=== PATIENT | female | born 1990 | race Caucasian/White ===

== ENCOUNTER 2025-05-14 15:08 | Outpatient (CLI) | payer OTHER, SELFPAY ==
--- NOTE | 2025-05-14 15:00 | CRLHL7_ITS ---
For Patients: As a result of the 21st Century Cures Act, medical imaging exams and procedure reports are released immediately into your electronic medical record. You may view this report before your referring provider. If you have questions, please contact your health care provider. OB ULTRASOUND SURVEY LMP: 11/06/2024. JANET by LMP: 08/13/2025. JANET by US: 08/14/2025. GA: 27 w, 0 d. INDICATION: anatomical survey. TECHNIQUE: Real time weber scale imaging of the fetus was performed. Evaluate anatomy. Transabdominal imaging performed. position: Breech. Cervix: Visualized. Technique: Transabdominal. Length of closed cervix: 3.0 cm. Placenta/cord: Anterior. Technique: Transabdominal. Placenta tip to internal OS: 7.5 cm. Umbilical Cord: 3-vessel cord. Placenta insertion: Central. Amniotic Fluid: 6.7 cm SDP (greater than/equal to: 2- less than 8 cm). SURVEY: Observed Structures. Calvarium/Spine: Cerebellum: 2.9 cm, 27 w 1 d. Cisterna Magna: 12.2 mm. Nuchal Fold: Too old to measure. Lateral Ventricle: 7.9 mm. CSP: Yes. Midline Falx: Yes. Choroid Plexus: Yes. Spine: Yes. Abdomen: Stomach: Yes. Abd Cord Insertion: Yes. Urinary Bladder: Yes. Kidneys: Yes. Diaphragm: Yes. Face: Nose/lips: Yes. Orbital view: Yes. Profile: Yes. Limbs: Upper Extremities: Yes. Lower Extremities: Yes. Hands: Yes. Feet: See comment. Vascular: 4-Chamber Heart: Yes. LVOT: Yes. RVOT: Yes. 3VV: See comment. 3VTV: Yes. BPD: 6.7 cm. 27 w, 1 d, 42.2 percent. HC: 25.3 cm. 27 w, 4 d, 38.8 percent. AC: 23.4 cm. 27 w, 5 d, 65.0 percent. FL: 4.7 cm. 25 w, 6 d, 8.6 percent. FL/AC ratio: 20.2 percent. HC/AC ratio: 1.1. heart rate: 139 bpm. age by this US: 27 w, 1 d. JANET by this US: 08/12/2025. EFW: 1014 g. Weight: 2 lbs, 4 oz. Percentile by JANET: 38.0 percent. COMMENT: feet and 3VV are suboptimal due to position. IMPRESSION: Single live intrauterine gestation at 27weeks 1day with JANET of 08/12/25. The left kidney is suboptimally visualized. There are otherwise no gross anomalies visualized. Evi Raman M.D. Diagnostic/Breast Radiologist [email or web address] TKP/meir worley/Dictated by: Evi Raman MD @ 05/17/2025 9:37:00 AM (Electronically Signed)
== END 2025-05-14 15:09 | disposition home or self-care (01) ==
LOC: US 15:08
PROVIDERS: Visit Provider Registered Nurse
DX: Z34.92 Encounter for supervision of normal pregnancy, unspecified, second trimester (principal); Z3A.27 27 weeks gestation of pregnancy
CPT/HCPCS: 76805

== ENCOUNTER 2025-05-14 16:30 | Outpatient (CLI) | payer OTHER, SELFPAY ==
[2025-05-14 21:39] LABS: Chlamydia DNA Amplified* NOT DETECTED (No Detected); GC DNA Amplified* NOT DETECTED (No Detected)
== END 2025-05-14 16:31 | disposition home or self-care (01) ==
PROVIDERS: Visit Provider Registered Nurse
DX: Z34.82 Encounter for supervision of other normal pregnancy, second trimester (principal)
CPT/HCPCS: 80306; 83020; 83021; 85660; 86592; 86787; 87491; 87591

== ENCOUNTER 2025-06-10 12:24 | Outpatient (CLI) | payer OTHER, SELFPAY ==
--- NOTE | 2025-06-10 12:15 | CRLHL7_ITS ---
For Patients: As a result of the Century Cures Act, medical imaging exams and procedure reports are released immediately into your electronic medical record. You may view this report before your referring provider. If you have questions, please contact your health care provider. OB ULTRASOUND FOLLOW-UP/LIMITED, 06/10/2025 CLINICAL HISTORY: Follow-up suboptimal views. COMPARISON: 05/14/2025. TECHNIQUE: Multiple transabdominal weber-scale color and M-mode Doppler images were obtained. FINDINGS: LMP: 11/06/2024. JANET by LMP: 08/13/2025. GA: 30 weeks 6 days. Gestation: Single. Cervix: Not visualized. Positioning: Breech. Amniotic Fluid: 7.2 cm SDP. Placenta: Technique: TA. Placenta Position: Anterior. Dopplers: Heart Rate: 159 bpm. IMPRESSION: 1. Kidneys and feet were visualized and appear normal. 2. Three vessel view was again suboptimal. Consider additional follow-up imaging. Naveen Anna M.D. Body/Diagnostic Radiologist [email or web address] Transcribed: 11:12 am DW/Dictated by: Naveen Anna MD @ 06/12/2025 10:47:00 AM (Electronically Signed)
== END 2025-06-10 12:25 | disposition home or self-care (01) ==
LOC: US 12:25
PROVIDERS: Visit Provider Registered Nurse
DX: Z36.2 Encounter for other antenatal screening follow-up (principal)
CPT/HCPCS: 76816

== ENCOUNTER 2025-06-25 10:52 | Outpatient (CLI) | payer OTHER, SELFPAY ==
--- NOTE | 2025-06-25 10:45 | CRLHL7_ITS ---
For Patients: As a result of the Century Cures Act, medical imaging exams and procedure reports are released immediately into your electronic medical record. You may view this report before your referring provider. If you have questions, please contact your health care provider. OB ULTRASOUND LMP: 11/06/2024. JANET by LMP: 11/06/2024. JANET by LMP: 08/13/2025. GA: 33 w, 0 d. Single. Comparison: 06/10/2025, 05/14/2025. INDICATION: Follow-up missing anatomy view, 3VV. TECHNIQUE: Real time weber scale imaging of the fetus was performed. Transabdominal. CERVIX: Not visualized. POSITIONING: Vertex. AMNIOTIC FLUID: 5.7 cm. SDP (N: greater than 2 x 1 cm) PLACENTA: Technique: Transabdominal. PLACENTA POSITION: Anterior. DOPPLER: heart rate: 130 bpm. IMPRESSION: Normal kidneys and bladder, stomach, ductal arch, three-vessel trachea view, four-chamber view, LVOT, RVOT and three-vessel view. Rodney Ro M.D. Diagnostic Radiologist [email or web address] SERA/lana JR/Dictated by: Rodney Ro MD @ 06/25/2025 12:07:00 PM (Electronically Signed)
== END 2025-06-25 10:53 | disposition home or self-care (01) ==
LOC: US 10:53
PROVIDERS: Visit Provider Obstetrics & Gynecology
DX: Z36.2 Encounter for other antenatal screening follow-up (principal)
CPT/HCPCS: 76816

== ENCOUNTER 2025-07-17 16:16 | Outpatient (CLI) | payer OTHER, SELFPAY ==
[2025-07-17 16:25] VITALS: PULSE 93; O2SAT 96
[2025-07-17 16:30] VITALS: PULSE 95; O2SAT 97
[2025-07-17 16:35] VITALS: PULSE 93; O2SAT 96
[2025-07-17 16:40] VITALS: PULSE 96; O2SAT 96
[2025-07-17 16:45] VITALS: BP 122/72; PULSE 88; RESP 16; TEMP 36.4
--- NOTE | 2025-07-17 18:03 | PC.OBNST ---
NST Note NST Note Start: 07/17/25 16:29 Freq: ONCE Status: Discharge Protocol: Document 07/17/25 17:46 BYRONY (Rec: 07/17/25 18:03 BYRON [email or web address]) NST Note 2 Para (# of births) 1 EDC 08/13/25 Gestational Age In 36 Weeks & 1 Days Weeks & Days Patient Presented Contractions/cramping with Complaint(s) of Reactive Yes Appropriate for Yes Gestational Age KELSI Linares RN Date 07/17/25 Reactive Yes Appropriate for Yes Gestational Age KELSI Fraser RN Date 07/17/25 OB NST charge Yes Complete NST Note Yes via Write Note The provider's electronic signature indicates the NST is reactive/appropriate for gestational age. *Note to provider: If an addendum is required, open the patient's chart and click on the note under the Nurse/Allied Health tab.
== END 2025-07-17 17:46 | disposition home or self-care (01) ==
LOC: OB OUT 16:17 → OB 16:19
PROVIDERS: Visit Provider Obstetrics & Gynecology
DX: O47.03 False labor before 37 completed weeks of gestation, third trimester (principal); Z3A.36 36 weeks gestation of pregnancy
CPT/HCPCS: 59025; G0463

== ENCOUNTER 2025-07-19 14:28 | Outpatient (CLI) | payer OTHER, SELFPAY ==
[2025-07-20 13:33] LABS: Strep B DNA Probe Negative (Negative)
[2025-07-20 14:25] LABS: Strep B Susceptibility Needed? No
== END 2025-07-19 14:29 | disposition home or self-care (01) ==
LOC: NFLDREF 14:28
PROVIDERS: Visit Provider Obstetrics & Gynecology
DX: Z34.93 Encounter for supervision of normal pregnancy, unspecified, third trimester (principal)
CPT/HCPCS: 87081; 87653

== ENCOUNTER 2025-08-17 01:44 | Inpatient (IN) | payer OTHER, SELFPAY ==
[2025-08-17] VITALS (107 sets, daily range): BP systolic 108–143; BP diastolic 55–99; PULSE 73–108; RESP 16–18; TEMP 36.4–36.9; O2SAT 93–100; BMI 35.6
[2025-08-17] MEDS: LACTATED RINGERS 1000 ML 1,000 ML 900 ML IV (01:49)
[2025-08-17 02:38] LABS: Hematocrit* 35.8 % (33.0-51.0); Hemoglobin* 12.1 gm/dL (12.0-16.0); Immature Granulocytes Pct Auto 2.0 %; Mean Corpuscular HGB Conc 34 gm/dL (32-36); Mean Corpuscular Hemoglobin 29 pg (26-34); Mean Corpuscular Volume 85 fL (80-100); RDW Coefficient of Variation % 15.0 % (11.5-15.5); Red Blood Count* 4.23 m/uL (4.00-5.20); White Blood Count* 11.13 K/uL (4.50-11.00)
[2025-08-17 02:40] LABS: Immature Granulocytes Abs Auto 0.20 K/uL (0.00-0.30); Lymphocytes Absolute Auto 2.80 K/uL (0.90-2.90); Slide Review Reflex No
[2025-08-17] MEDS: BUPIVACAINE 0.25% PF 10 ML 10 ML ML EPIDURAL (02:49)
[2025-08-17] MEDS: ROPIVACAINE 0.2% 100 ml 100 ML 12 MG EPIDURAL ×2 (02:49→10:24)
[2025-08-17] MEDS: LACTATED RINGERS 1000 ML 1,000 ML 125 ML IV ×2 (02:57→09:46)
--- NOTE | 2025-08-17 02:59 | PM.ANBPRC ---
[facility] Medical History Migraine without aura ?G43.009 - Migraine without aura, not intractable, without status migrainosus (ICD-10) GERD (gastroesophageal reflux disease) ?K21.9 - Gastro-esophageal reflux disease without esophagitis (ICD-10) Depression with anxiety ?F41.8 - Other specified anxiety disorders (ICD-10) Surgical History [place] teeth extracted ?K08.409 - Partial loss of teeth, unspecified cause, unspecified class (ICD-10) Family History Other Alcohol dependence Breast cancer High blood pressure Social History What is your current living situation?: I presently have a place to live Problems where you live: no known problems In the past 12 months, utilities in danger of being shut off: no In the past 12 mos, have been you worried that your food would run out before you had money to buy more?: never true In the past 12 mos, the food you bought just didn't last and you didn't have money to buy more?: never true Smoking Status: Never smoker How often does anyone, including family, friends and others, physically hurt you: never How often does anyone, including family, friends and others, insult or talk down to you: never How often does anyone, including family, friends and others, threaten you with harm: never How often does anyone, including family, friends and others, scream or curse at you: never Meds Home Medications and Allergies Home Medications ?Medication ?Instructions ?Recorded ?Confirmed ?Type escitalopram oxalate 20 mg tablet 20 mg PO DAILY 09/02/23 08/16/25 History docosahexaenoic acid 200 mg 200 mg PO 05/14/25 08/16/25 History capsule ( DHA) doxylamine succinate 25 mg tablet 25 mg PO QHS PRN 05/14/25 08/16/25 History (Unisom (doxylamine)) ferrous sulfate 27 mg iron tablet 5 mg PO QDAY 05/14/25 08/16/25 History pyridoxine (vitamin B6) 25 mg 25 mg PO QDAY 05/14/25 08/16/25 History tablet famotidine 10 mg tablet 10 mg PO QDAY 05/28/25 08/16/25 History omeprazole 10 mg capsule,delayed 10 mg PO QDAY 06/18/25 08/16/25 History release Allergies Allergy/AdvReac Type Severity Reaction Status Date / Time No Known Drug Allergies Allergy Verified 08/16/25 14:54 Results Labs Labs: Laboratory Results - last 24 hr 08/17/25 01:46 WBC 11.13 H RBC 4.23 Hgb 12.1 Hct 35.8 MCV 85 MCH 29 MCHC 34 RDW Coeff of Salima 15.0 Plt Count 264 Neut % (Auto) 64.8 Lymph % (Auto) 25.5 [place] % (Auto) 6.6 Eos % (Auto) 0.9 Baso % (Auto) 0.2 Neut # (Auto) 7.20 H Lymph # (Auto) 2.80 [place] # (Auto) 0.70 Eos # (Auto) 0.10 Baso # (Auto) 0.00 Abs Immat Gran (auto) 0.20 Imm/Tot Granulo (auto) 2.0 Vital Signs Vital Signs: Last Vital Signs Temp 97.6 F 08/17/25 01:53 Pulse 88 08/17/25 02:57 BP 137/80 08/17/25 02:59 Pulse Ox 100 08/17/25 02:54 Anesthesia Procedures Epidural Insertion Patient Location: OB Start Time: 02:05 Stop Time: 03:00 Start Date: 08/17/25 Stop Date: 08/17/25 Reason for Block: procedure for pain Patient Position: sitting Performed By: Ariel Spaulding Preanesthetic Checklist: IV checked, risks and benefits discussed, monitors and equipment checked, pre-op evaluation, timeout performed and anesthesia consent Prep: chlorhexidine gluconate Monitoring: blood pressure monitoring, continuous pulse oximetry and heart rate Approach: midline Vertebral Space: lumbar (1-5) Epidural Technique: TIFFANIE saline Needle Type: Tuohy needle Injection Technique: continuous catheter Needle gauge: 17 Needle Length (cm): 10 cm Needle Insertion Depth (cm): 8 Catheter Gauge: 19 Catheter Type: multi-orifice Catheter at skin depth (cm): 14 Test Dose Result: negative and lidocaine 1.5% with epinephrine 1 to 200,000
--- NOTE | 2025-08-17 06:41 | PM.GYNCN1 ---
HEALTH OCCUPATIONS TEACHER - CN: HPI Data of Consult Time Seen by Provider: 06:41 Date Seen: 08/17/25 Requesting Physician: Elena Schmidt MD Primary Care Provider: Not a Local Provider Consult Narrative Narrative: Leyda Barnett is a 34 year old female cc:: CC: Elena Schmidt MD [facility] Medical History Migraine without aura ?G43.009 - Migraine without aura, not intractable, without status migrainosus (ICD-10) GERD (gastroesophageal reflux disease) ?K21.9 - Gastro-esophageal reflux disease without esophagitis (ICD-10) Depression with anxiety ?F41.8 - Other specified anxiety disorders (ICD-10) Surgical History [place] teeth extracted ?K08.409 - Partial loss of teeth, unspecified cause, unspecified class (ICD-10) Family History Other Alcohol dependence Breast cancer High blood pressure Social History What is your current living situation?: I presently have a place to live Problems where you live: no known problems In the past 12 months, utilities in danger of being shut off: no In the past 12 mos, have been you worried that your food would run out before you had money to buy more?: never true In the past 12 mos, the food you bought just didn't last and you didn't have money to buy more?: never true Smoking Status: Never smoker How often does anyone, including family, friends and others, physically hurt you: never How often does anyone, including family, friends and others, insult or talk down to you: never How often does anyone, including family, friends and others, threaten you with harm: never How often does anyone, including family, friends and others, scream or curse at you: never Meds Home Medications and Allergies Home Medications ?Medication ?Instructions ?Recorded ?Confirmed ?Type escitalopram oxalate 20 mg tablet 20 mg PO DAILY 09/02/23 08/16/25 History docosahexaenoic acid 200 mg 200 mg PO 05/14/25 08/16/25 History capsule ( DHA) doxylamine succinate 25 mg tablet 25 mg PO QHS PRN 05/14/25 08/16/25 History (Unisom (doxylamine)) ferrous sulfate 27 mg iron tablet 5 mg PO QDAY 05/14/25 08/16/25 History pyridoxine (vitamin B6) 25 mg 25 mg PO QDAY 05/14/25 08/16/25 History tablet famotidine 10 mg tablet 10 mg PO QDAY 05/28/25 08/16/25 History omeprazole 10 mg capsule,delayed 10 mg PO QDAY 06/18/25 08/16/25 History release Allergies Allergy/AdvReac Type Severity Reaction Status Date / Time No Known Drug Allergies Allergy Verified 08/16/25 14:54 HEALTH OCCUPATIONS TEACHER - Exam Physical Exam: Vital signs: Temp Pulse BP Pulse Ox 98.4 F 88 119/70 93 08/17/25 06:03 08/17/25 06:33 08/17/25 06:33 08/17/25 05:54 HEALTH OCCUPATIONS TEACHER - Results Labs Labs: Short CBC 08/17/25 Range/Units 01:46 WBC 11.13 H (4.50-11.00) K/uL Hgb 12.1 (12.0-16.0) gm/dL Hct 35.8 (33.0-51.0) % Plt Count 264 (140-440) K/uL
[2025-08-17] MEDS: ACETAMINOPHEN 500 MG TABLET 1000 MG PO ×3 (06:57→21:26)
[2025-08-17] MEDS: ONDANSETRON 2 MG/ML inj 4 MG IV (07:50)
--- NOTE | 2025-08-17 10:00 | W.PM.LDBA ---
Subjective History of Present Illness Time Seen by Provider: 10:00 Date Seen: 08/17/25 Narrative: Patient is being admitted to Labor and Delivery for spontaneous onset of labor. She is a 34 year old at 40 4/7 weeks gestation. Her full history and physical was dictated by Leann Ruiz CNM on 07/26/2025. Please see this for details. When she presented to the center, she was experiencing contractions at 2.5 to 3 minute intervals and rated her pain at 10/10. She received an epidural for pain control at 2:45 a.m., and has been comfortable since. Specific Issues/Plans G 2 P 1001 H&P by Virginie Ruiz CNM on 07/26/25 # Anemia - Hgb 10.8 at 27 weeks. Continue iron supplement. - Hgb 11.3 at 34 weeks # Father of baby has G6PD deficiency. (inherited x-linked disorder that causes RBCs to break down prematurely) Declined genetic counseling referral - states they completed with her first and know what to expect and what to do after baby is born. 05/28/25 # Late to care. First OB visit at 27 weeks. Urine tox screen: Negative. [x] FAS - see below # Anxiety and depression. Increased stress with recent move, job hunting, and living in a small space with other family members. Lexapro 20 mg daily. Was seeing a psychiatrist for medication management in a therapist. Needs to establish with both of these providers in [place]. Will place a referral for each. # Needs pap PP - [place], [place], [facility]: [facility] faxed a message indicating there is no pap report to send. Ultrasound: 01/05/2025: Single live IUP with EGA by menstrual period of 8 weeks 4 days an EGA by ultrasound of 8 weeks 3 days. heart rate 178 beats per minute. Small hypoechoic collection adjacent to gestational sac suggesting small subchorionic hemorrhage. - FAS: Normal visualized anatomy - kidneys/feet/3VV now well seen. EFW 1014g at 38% - BPD 42%, HC 39%, AC 65%, FL 8.6%. Anterior placenta, no previa. 3 vessel cord, central insertion. Cx 3.0cm. - 06/10: Kidneys and feet seen and normal. 3VV still not seen, ordered repeat. FHR 159, SDO 7.2cm, breech. - 06/26: EVV view seen, normal. MVP 5.7cm. FHR 130bpm. Labs: 02/07/2025: Hemoglobin 11.6, platelets 334, blood type O positive, antibody screen negative, TSH 1.432, rubella 66/positive, urine culture mixed Gram-positive organisms growth represents contamination, RPR nonreactive hepatitis C antibody negative hepatitis-B surface antigen negative, HIV negative, Maternity 21 on 02/18/2025: Negative Chlamydia gonorrhea: negative, Varicella:immune. Pap smear:[], 1st OB visit:[] Covid: 06/25/25 TDAP: 06/10/25 RSV: 06/25/25 Mental Health: 06/25/25 Hgb: 11.3 GBS: 07/19/2025 H&P:07/26/25 OB - Problem Based A/P Additional Plan (1) Spontaneous onset of labor: Status: Acute Delivery/Labor/Induction Plan Plan: expectant management Induction method: AROM OB Result Labs Blood Type: O (+) positive Rubella: immune RPR/VDLR: nonreactive GBS Status: negative HBsAG: negative OB Exam Physical Exam Vital signs: Temp Pulse BP Pulse Ox 98.2 F 88 115/64 93 08/17/25 08:35 08/17/25 09:47 08/17/25 09:47 08/17/25 05:54 Detailed Labor and Delivery Exam Patient Gravid: yes Dilation (cm): 9 Effacement (%): 100 Cervix position: mid Consistency: soft Contraction Frequency: q3 minutes Contraction duration (sec): 60 Tachysystole: No Contraction intensity: Strong/Firm Fetus (Single) Station: 0 Amniotic Membrane Status: AROM (@ ~0959) Amniotic Membrane Fluid Description: Clear Heart Rate Baseline: 120 Monitor Accelerations: Present Monitor Decelerations: None Skilled Nursing Variability: Moderate (6-25)
--- NOTE | 2025-08-17 11:18 | W.PM.OBVAGDE ---
OB Procedure Vag Delivery Mother Details Mother Details: The patient is a 34 year-old, 2, Para 1001, admitted on 08/17/25 at 40 4/7 weeks gestation in active labor. : 2 Para: 1 Weeks Gestation: 40.4 Admission Date: 08/17/25 Additional Details Amniotic Membrane Status: AROM (@ ~0959) Amniotic Membrane Rupture Date: 08/17/25 Amniotic Membrane Rupture Time: 09:55 Amniotic Membrane Fluid Description: Meconium Stained (initially looked clear, but was obviously meconium-stained at thte time of delivery) Analgesia/Anesthesia Type: Epidural Waterbirth: No [place]: No Delivery augmentation: rupture of membranes Labor Onset: 01:40 Complete: 10:30 Pushin:32 Heart: heart tones during second stage were 120s baseline with good variability and variable decelerations with pushing to 90s to 100. Delivery Details Delivery Date: 08/17/25 Delivery Time: 10:58 Route of delivery: (25 second shoulder dystocia, relieved with Jake positioning and wood screw maneuver) Infant Gender: Female Viability: Alive; Heart Rate Present Position at Delivery: OA Delivery Details: Delivered via vaginal delivery. Cord was clamped and cut and the infant taken to the warmer for evaluation and resuscitation. See [facility] [employer] OFFICIAL note for details.? Infant weight 7 lb 14 oz. 1 Minute Interval Total Score: 3 5 Minute Interval Total Score: 9 Additional Details Shoulder Dystocia: Yes (25 seconds, relieved with Padilla screw maneuver) Placenta Delivery Time: 11:04 Placental Delivery Description: Spontaneous Delivery repair: Chromic (1 interrupted stitch of 3-0 chromic midline upper labial) Procedure Done: Global Blood Loss: 615 (200 mL immediately with the delivery, and then an additional 415 mL blood and clots removed from the uterus approximately 1 hour later. Initially IV Pitocin, and then misoprostol 800 mcg LA administered.) Laceration: Labial Episiotomy Description: None Blood Loss Measurement Type: QBL Bakri Used: No Sponge/Need Count Correct: Yes Cord Vessel Description: 3 Vessels (Cord gases obtained) Event Summary Status: Mother and infant were stable after delivery. Disposition: floor
[2025-08-17] MEDS: LIDOCAINE 1 % PF 30 ML INJECTION (11:20)
[2025-08-17] MEDS: IBUPROFEN 600 MG TABLET PO ×2 (11:30→18:53)
[2025-08-17] MEDS: miSOPROStoL 800 MCG/4 TABLET PR (12:00)
[2025-08-17] MEDS: TRANEXAMIC ACID 100 MG/ML INJ 1000 MG IV (12:52)
--- NOTE | 2025-08-17 13:04 | PM.OBPNVD1 ---
OB - PN:Subj Subjective Time Seen by Provider: 13:04 Date Seen: 08/17/25 Narrative: Called for the second time to assess patient for hemorrhage. The first time was approximately 1 hour after the delivery , at which time 415 mL of blood and clots was manually removed from the uterus (see delivery note). Leyda now had the infant to breast nursing, and felt more cramping and bleeding. OB - PN: Obj Exam Physical Exam: Vital signs: Temp Pulse BP Pulse Ox 98.2 F 80 136/82 96 08/17/25 08:35 08/17/25 13:03 08/17/25 13:03 08/17/25 12:59 Constitutional: Constitutional: no acute distress Comments: Sitting, reclined in bed nursing infant Routine Abdominal Exam: Fundus: Present firm (at U, deflected to patient's right) Routine Exam: Comments: No evidence of perineal, vaginal or cervical bleeding. Bladder sterilely emptied of ~400 mL clear urine with a red [place] catheter. Fundus returned to midline, U/2. Bimanual examination performed, 2 small clots removed, no active flow noted. QBL 150 mL total on the drape/pad. OB - PN: Obj Data Labs Labs: Laboratory Results - last 24 hr 08/17/25 01:46 WBC 11.13 H RBC 4.23 Hgb 12.1 Hct 35.8 MCV 85 MCH 29 MCHC 34 RDW Coeff of Salima 15.0 Plt Count 264 Neut % (Auto) 64.8 Lymph % (Auto) 25.5 [place] % (Auto) 6.6 Eos % (Auto) 0.9 Baso % (Auto) 0.2 Neut # (Auto) 7.20 H Lymph # (Auto) 2.80 [place] # (Auto) 0.70 Eos # (Auto) 0.10 Baso # (Auto) 0.00 Abs Immat Gran (auto) 0.20 Imm/Tot Granulo (auto) 2.0 OB - PN: A/P Delivery Assessment and Plan (1) Status post delivery at term: Status: Acute (2) hemorrhage: Status: Acute Assessment and Plan: Total QBL: 200 mL(delivery) + 415 mL + 150 mL = 765 mL. Uterotonics administered since delivery: IV pitocin, misoprostol 800 mg OR, tranexamnic acid 1000 mg IV. Urinary retention likely contributed to bleeding. Bladder emptied via catheter. Clots removed, flow resolved. Plan day: 0 Plan: routine care
[2025-08-18] MEDS: IBUPROFEN 600 MG TABLET PO ×4 (01:09→21:18)
[2025-08-18] MEDS: ACETAMINOPHEN 500 MG TABLET 1000 MG PO ×3 (03:14→18:28)
[2025-08-18 04:19] VITALS: BP 125/78; PULSE 75; RESP 16; TEMP 36.7; O2SAT 96
[2025-08-18 05:19] LABS: Hemoglobin* 10.5 gm/dL (12.0-16.0)
[2025-08-18 08:00] VITALS: BP 123/76; PULSE 82; RESP 18; TEMP 36.2; O2SAT 97
[2025-08-18] MEDS: DOCUSATE SODIUM 100 MG CAPSULE PO (10:18)
--- NOTE | 2025-08-18 11:44 | PM.ANPOST ---
Post Anesthesia Note Post Anesthesia Note Patient seen: Inpatient Respiratory Status: adequate Cardiovascular Status: adequate Mental Status: baseline Pain: adequate Temp: baseline Anesthetic awareness: N/A Complications: none Follow care: none
--- NOTE | 2025-08-18 13:13 | PM.OBPNVD1 ---
OB - PN:Subj Subjective Date Seen: 08/18/25 Patient comments OB post-: no complaints Narrative: The patient is a 34-year-old 2 now para 2001 who is day one following a normal spontaneous vaginal delivery. She had an immediate hemorrhage due to uterine atony, with a total blood loss of 700-800 mL. Bleeding is normal now. Her vital signs have been stable and she feels well. She continues to work on and is somewhat discouraged. She has a lot of breast pain when her latches. She has been working with the nurses, using a breast shield, and trying different feeding positions. OB - PN: Obj Exam Physical Exam: Vital signs: Temp Pulse Resp BP Pulse Ox O2 Del Method 97.2 F L 82 18 123/76 97 Room Air 08/18/25 08:00 08/18/25 08:00 08/18/25 08:00 08/18/25 08:00 08/18/25 08:00 08/18/25 08:00 Constitutional: Constitutional: no acute distress Routine Neck Exam: Neck: Present normal inspection Routine Respiratory Exam: Respiratory: Present CTA bilaterally; Absent respiratory distress Routine Cardiovascular Exam: Cardiovascular: Present RRR; Absent murmur Routine Abdominal Exam: Abdominal: Present soft; Absent tenderness Fundus: Present firm Routine Extremities Exam: Extremities: Present normal inspection and pedal edema; Absent calf tenderness Routine Neurological Exam: Neurological: Present alert and oriented X3 Routine Psychiatric Exam: Psychiatric: Present normal affect OB - PN: Obj Data Labs Labs: Laboratory Results - last 24 hr 08/18/25 04:56 Hgb 10.5 L OB - PN: A/P Delivery Assessment and Plan (1) Status post delivery at term: Status: Acute (2) hemorrhage: Status: Resolved Plan day: 1 Plan: routine care Comments: Anticipate discharge tomorrow.
[2025-08-18 15:30] VITALS: BP 122/75; PULSE 86; RESP 16; TEMP 36.2; O2SAT 97
[2025-08-18] MEDS: SIMETHICONE 80 MG TAB.CHEW PO (18:28)
[2025-08-18 21:10] VITALS: BP 128/81; PULSE 70; RESP 16; TEMP 36.8; O2SAT 97
[2025-08-19] MEDS: ACETAMINOPHEN 500 MG TABLET 1000 MG PO ×2 (00:42→07:56)
[2025-08-19 00:45] VITALS: BP 121/85; PULSE 73; RESP 16; TEMP 36.4; O2SAT 97
[2025-08-19 05:15] VITALS: BP 130/84; PULSE 77; RESP 16; TEMP 36.6; O2SAT 97
[2025-08-19] MEDS: IBUPROFEN 600 MG TABLET PO ×2 (05:33→12:55)
[2025-08-19] MEDS: SIMETHICONE 80 MG TAB.CHEW PO (05:33)
[2025-08-19 07:56] VITALS: TEMP 36.2
[2025-08-19 08:04] VITALS: BP 124/82; PULSE 78; RESP 16; TEMP 36.2; O2SAT 97
--- NOTE | 2025-08-19 08:49 | PM.OBDSVD1 ---
DS: Providers Provider Date Seen: 08/19/25 Date of admission: 08/17/25 01:44 Primary care physician: Not a Local Provider Admitting Clinician: Elena Schmidt MD Attending Physician on discharge: Leann Ruiz CNM Date of Discharge: 08/19/25 DS: Diagnosis Discharge Diagnosis (1) care and examination immediately after delivery: Status: Acute (2) Lactating mother: Status: Acute (3) Status post delivery at term: Status: Acute (4) hemorrhage: Status: Resolved Exam Narrative: Exam Narrative: VSS, afebrile GENERAL APPEARANCE: ?normal affect, alert, no distress MOOD: ?appropriate HEENT: normocephalic, neck supple, full ROM CHEST: ?Symmetrical chest wall movement. ?Normal respiratory effort. ?Clear to auscultation HEART: ?regular rate and rhythm ABDOMEN: ?soft, non-tender. Uterine fundus is firm, at Umbilicus, Midline and is appropriate for the stage of recovery. ?Bowel sounds present. PERINEUM: ?mild edema of the perineum, there is a labial laceration that is healing well. EXTREMITIES: ?normal and trace edema Const: Vital Signs, click to edit/add: Vital Signs - 24 hr 08/18/25 15:30 08/18/25 21:10 08/19/25 00:45 Temperature 97.2 F L 98.3 F 97.6 F Pulse Rate [Pulse Oximeter] 86 70 73 Respiratory Rate 16 16 16 Blood Pressure [Ri ght Arm] 122/75 128/81 121/85 Pulse Oximetry 97 97 97 Oxygen Delivery Me thod Room Air Room Air Room Air 08/19/25 05:15 08/19/25 07:56 08/19/25 08:04 Temperature 97.8 F 97.2 F L 97.2 F L Pulse Rate [Pulse Oximeter] 77 78 Respiratory Rate 16 16 Blood Pressure [Ri ght Arm] 130/84 124/82 Pulse Oximetry 97 97 Oxygen Delivery Me thod Room Air Room Air Documenting provider has reviewed patient's vital signs: yes OB - DS: Summary Hospital Course Hospital Course: Leyda is a 34 y.o. who was admitted to [facility] for labor. ?She had an uncomplicated NVD.?The patient feels well. ?The pain is well controlled with current medications. ?She has no new complaints. ?She is mostly pumping and reports things are going well. She report pain with latching and would like to meet with prior to discharge. Reports she pumped with her last child and is ok if that is how she feeds baby? the patient has done well.? Vitals have been stable, she had elevated blood pressures in recovery after delivery but they have been stable since.? She has remained afebrile.? Has a good appetite, is tolerating a general diet. ?She is voiding without difficulty.? She is passing gas and has had a bowel movement.? She is ambulating and denies any dizziness.? Has Small amount of rubra lochia. ?She is planning Mirena IUD for prevention. Peripartum Data delivery method: Vaginal complications: none [place] Infant Gender: Female Discharge Plan: Home Status at Discharge Functional status at discharge: independent ambulation Overall status at discharge: patient is progressing back to baseline Time Spent with Patient Time attestation: Total time spent providing and/or coordinating discharge services: Time spent: Less than 30 minutes Discharge Plan Discharge Disposition: Home, Self-Care Date of Admission: 08/17/25 01:44 Attending Provider on Discharge: Leann Ruiz Primary Care Provider: Provider,Not a Local Condition: Stable Anticipated Discharge Date/Time: 08/19/25 12:00 Discharge Medications: New acetaminophen 500 mg Tablet 1,000 mg PO Q6H PRNQty: 0 0RF docusate sodium 100 mg Capsule 100 mg PO DAILY Qty: 60 0RF ibuprofen 600 mg Tablet 600 mg PO Q6H PRNQty: 90 0RF Continued escitalopram oxalate 20 mg tablet 20 mg PO DAILY pyridoxine (vitamin B6) 25 mg tablet 25 mg PO QDAY Unisom (doxylamine) 25 mg tablet 25 mg PO QHS PRN DHA 200 mg capsule 200 mg PO ferrous sulfate 27 mg iron tablet 5 mg PO QDAY famotidine 10 mg tablet 10 mg PO QDAY omeprazole 10 mg capsule,delayed release(DR/EC) 10 mg PO QDAY Discharge Orders: Discharge Order (Routine); Ordered 08/19/25 Ordered By: Leann Ruiz Patient Education: OB Over the Counter Medication Information, OB Vaginal/Breast Feeding Additional Instructions: Discharge instructions were reviewed with the patient including signs and symptoms of infection and home going medications Nothing vaginally for 6 weeks: no tampons or intercourse Off Work or School for 6 weeks 2-week visit: discuss feeding concerns, review control options and screen for anxiety/depression. 6-week visit for an annual exam. consultation services are available to all mothers and babies for the first year after delivery.? To make an appointment, please call [phone]. Activity Level: Activity as Tolerated Discharge Diet: Regular Follow Up Appointments: Provider,Not a Local [Primary Care Provider, Family Practice] [facility] [Provider Group] Forms: [employer] Info Instructions
[2025-08-19] MEDS: DOCUSATE SODIUM 100 MG CAPSULE PO (09:00)
== END 2025-08-19 13:40 | disposition home or self-care (01) | DRG 806 ==
LOC: OB OUT 01:44 → OB 08-19 08:54
PROVIDERS: Obstetrics & Gynecology; Admitting Provider Obstetrics & Gynecology; Visit Provider Obstetrics & Gynecology
DX: O99.344 Other mental disorders complicating childbirth (principal); O72.1 Other immediate postpartum hemorrhage; Z37.0 Single live birth; O66.0 Obstructed labor due to shoulder dystocia; O77.0 Labor and delivery complicated by meconium in amniotic fluid; R33.9 Retention of urine, unspecified; F41.9 Anxiety disorder, unspecified; F32.A Depression, unspecified; O99.02 Anemia complicating childbirth; D64.9 Anemia, unspecified; Z3A.40 40 weeks gestation of pregnancy
CPT/HCPCS: 01967; 36415; 85018; 85025; 86592; 88307; G0463; A9270; J0665; J2003; J2405; J2795; J3010; J7120

== ENCOUNTER 2025-08-26 12:48 | Outpatient (CLI) | payer OTHER, SELFPAY ==
--- NOTE | 2025-08-26 17:01 | W.PM.LAC.MC ---
Consult Note - Mom Date of Visit Date of visit: 08/26/25 Reason for consultation: Assistance Needed Visit Code: Visit Patient's Information Phone number: [phone] : 2 Para: 2 Allergies No Known Drug Allergies Allergy (Verified 08/16/25 14:54) Mother's Medical History: Medical History (Updated 08/24/25 @ 00:01 by Background Daemon) Migraine without aura ?G43.009 - Migraine without aura, not intractable, without status migrainosus (ICD-10) GERD (gastroesophageal reflux disease) ?K21.9 - Gastro-esophageal reflux disease without esophagitis (ICD-10) Depression with anxiety ?F41.8 - Other specified anxiety disorders (ICD-10) Delivery Information Delivery type: Vaginal Gestational Age: 40+4 Gestational Weight For Age: AGA Weight: 3.585 kg Discharge Weight: 3.48 kg Percentage weight loss: 3 Baby's Information Baby's Age at Visit: 7 days Baby's Provider or Clinic: [facility] Jaundice: No Past Experience Past Experience: No (pumped and bottled for 13 months) Current Frequency of Day Feedings: all over the place sometimes every 30 minutes, sometimes 3 hours Both Breasts: Yes Suck: strong Latch: ok Length of Time: 10 min ea side Goals: at least 1 year Pumping Pumping: Yes Quantity Pumped: 4-6 oz after feeding several times/day Supplementing EBM Supplement: Yes Formula Supplement: No Baby Elimination Number of Wet Diapers a Day: ea feeding Number of BM a Day: 6-7/day Breast/Nipple Condition Breast Information: Breasts are symmetrical with rounded lower quadrants, intramammary distance is less than 1.5 inches. No erythema. Nipples are supple, everted prior to feeding. Breast Shape: Round and Firm Engorgement: No Maternal Nipple Condition - Left: Common Nipple Maternal Nipple Condition - Right: Common Nipple Sore Nipples: Yes Interventions for Sore Nipples: Lansinoh/Nipple Cream Baby Assessment Skin: Normal Tongue/frenulum: Normal/elastic Palate: Average Lips: Relaxed and Symmetrical Jaw Alignment: Symmetrical Mucosa: [place], moist Onsite Observation Pre-Feed weight: 3.858 kg Post-Feed weight: 3.896 kg Milk Transferred (mL): 38 Position: Cross cradle Attachment/latch-on achieved: Easily Suck pattern: Suck burst and normal rest Swallow: Audible, consistent and Gulping Behavior following feed: Alert, content Pre-Nursing Left Nipple: Within Normal Limits Pre-Nursing Right Nipple: Within Normal Limits Post-Nursing Left Nipple: Within Normal Limits Post-Nursing Right Nipple: Within Normal Limits Assessments/Interventions Assessments/Interventions: Babe latched to mom's RIGHT breast, latched well and stayed nursing for 10 minutes; needed help staying snugged into mom's breast to keep deep latch Transferred 28 ml of milk Babe then latched to mom's LEFT breast, latched well and nursed for another 3 minutes and came off; would not relatch despite multiple attempts Transferred 10 ml of milk. Total milk transferred: 38 ml and was content Worked with mom/taught asymmetrical latch technique for a wide, deep latch and mom reports increased comfort with this; able to point out rhythmic sucking and swallowing to help verify baby getting milk Discussed normals of ; milk coming in, regulation of supply, use of pump to relieve fullness if needed, but not to pump every feeding if not needed to prevent over supply. Cool packs after feeding may help breast congestion and reduce need for pumping. Lymphatic breast massage prior to nursing 2-3 times/day may also help move milk and decrease congestion. Ibuprofen for mom ok to help decrease breast discomfort as needed. Nipple care reviewed as well. Education provided: Early feeding cues to maximize timing of latching, Asymmetric latch technique for wide/deep latch to increase milk, Transfer for baby and increase comfort for mom, Supply/demand nature of milk supply, Need for frequent stimulation/milk removal, Sore nipple treatment options, Alternative feeding methods (SNS, cup, finger feeding, bottling), Pumping for milk management and Milk collection, storage Follow-Up Suggested follow up: Appointment as needed Time Spent Time spent with patient (min): 90 Meds Home Medications and Allergies Home Medications ?Medication ?Instructions ?Recorded ?Confirmed ?Type escitalopram oxalate 20 mg tablet 20 mg PO DAILY 09/02/23 08/16/25 History docosahexaenoic acid 200 mg 200 mg PO 05/14/25 08/16/25 History capsule ( DHA) doxylamine succinate 25 mg tablet 25 mg PO QHS PRN 05/14/25 08/16/25 History (Unisom (doxylamine)) ferrous sulfate 27 mg iron tablet 5 mg PO QDAY 05/14/25 08/16/25 History pyridoxine (vitamin B6) 25 mg 25 mg PO QDAY 05/14/25 08/16/25 History tablet famotidine 10 mg tablet 10 mg PO QDAY 05/28/25 08/16/25 History omeprazole 10 mg capsule,delayed 10 mg PO QDAY 06/18/25 08/16/25 History release acetaminophen 500 mg tablet 1,000 mg (2 x 500 mg) PO Q6H PRN 08/19/25 Rx #0 tabs docusate sodium 100 mg capsule 100 mg PO DAILY #60 caps 08/19/25 Rx ibuprofen 600 mg tablet 600 mg PO Q6H PRN #90 tabs 08/19/25 Rx Allergies Allergy/AdvReac Type Severity Reaction Status Date / Time No Known Drug Allergies Allergy Verified 08/16/25 14:54
== END 2025-08-26 12:49 | disposition home or self-care (01) ==
PROVIDERS: Visit Provider Obstetrics & Gynecology
DX: Z39.1 Encounter for care and examination of lactating mother (principal)
CPT/HCPCS: G0463

== ENCOUNTER 2025-09-25 14:21 | Outpatient (CLI) | payer OTHER, SELFPAY ==
[2025-09-28 02:41] LABS: HPV Source Cervix
[2025-10-02 11:10] LABS: Pap Test Digital Imaging Done
== END 2025-09-25 14:22 | disposition home or self-care (01) ==
PROVIDERS: Visit Provider Registered Nurse
DX: Z12.4 Encounter for screening for malignant neoplasm of cervix (principal)
CPT/HCPCS: 87624; 87625; 88141; 88142; 88175